=== PATIENT | male | born 1960 | race African-American/Black ===

== ENCOUNTER 2018-12-16 04:22 | Inpatient (IN) | payer MEDICARE, MEDICAID ==
[~2018-12-16] VITALS: Ht 185.4 cm; Wt 82.0 kg
[2018-12-16] MEDS ORDERED: SODIUM CHLORIDE 0.9% 1,000 ML IV ONE (05:15)
[2018-12-16 05:54] LABS: BASOPHILS % 0.8 % (0.0-2.0); EOSINOPHILS % 1.9 % (0.0-5.0); HEMATOCRIT. 45.1 % (42.0-52.0); HEMOGLOBIN. 15.7 g/dL (14.0-18.0); LYMPHOCYTES % 16.7 % (20.0-50.0); MEAN CORPUSCULAR HEMOGLOBIN 33.4 pg (28.0-32.0); MEAN CORPUSCULAR VOLUME 96.1 fL (80.0-94.0); MONOCYTES % 8.9 % (2.0-8.0); NEUTROPHILS % 71.7 % (40.0-76.0); PLATELET 170 x1000/uL (130-400); RED CELL DISTRIBUTION WIDTH 12.9 % (11.6-14.6)
[2018-12-16 05:57] LABS: CHLORIDE 105 mEq/L (98-107)
[2018-12-16 07:12] LABS: *AMPHETAMINES SCREEN URINE NEGATIVE (NEGATIVE)
[2018-12-16 07:13] LABS: *BARBITURATES SCREEN URINE NEGATIVE (NEGATIVE); *BENZODIAZEPINES SCREEN URINE NEGATIVE (NEGATIVE); *COCAINE SCREEN URINE PRESUMTIVE POSITIVE (NEGATIVE); METHADONE URINE SCREEN NEGATIVE (NEGATIVE); OPIATES URINE SCREEN NEGATIVE (NEGATIVE); PHENCYCLIDINE URINE SCREEN NEGATIVE (NEGATIVE)
[2018-12-16 07:14] LABS: CANNABINOID URINE SCREEN NEGATIVE (NEGATIVE)
[2018-12-16] MEDS ORDERED: CLONIDINE 0.1MG TABLET PO PRN (11:00)
[2018-12-16] MEDS ORDERED: LORAZEPAM 0.5MG TABLET PO PRN (20:30)
[2018-12-16] MEDS ORDERED: DOCUSATE SODIUM 100MG CAPSULE PO PRN (20:30)
[2018-12-16] MEDS ORDERED: IPRATROPIUM/ALBUTEROL 0.5-3(2.5)MG/3ML NEB INH PRN (20:30)
[2018-12-16] MEDS ORDERED: HYDROCODONE/ACETAMINOPHEN 5/325MG TABLET PO PRN (20:30)
[2018-12-16] MEDS ORDERED: ACETAMINOPHEN 325MG TABLET PO PRN (20:30)
[2018-12-16] MEDS ORDERED: ONDANSETRON HCL 4MG/2ML INJ IV PRN (20:30)
[2018-12-16 21:30] VITALS: BP 119/67
[2018-12-17] VITALS: BP 107/61
[2018-12-17 04:00] VITALS: BP 113/70
[2018-12-17 06:56] LABS: CHLORIDE 107 mEq/L (98-107)
[2018-12-17 07:01] LABS: BASOPHILS % 0.5 % (0.0-2.0); HEMOGLOBIN. 15.4 g/dL (14.0-18.0); LYMPHOCYTES % 20.5 % (20.0-50.0); MEAN CORPUSCULAR HEMOGLOBIN 32.8 pg (28.0-32.0); MEAN CORPUSCULAR VOLUME 97.6 fL (80.0-94.0); MEAN PLATELET VOLUME 9.1 fl (7.4-10.4); MONOCYTES % 8.1 % (2.0-8.0); NEUTROPHILS % 67.9 % (40.0-76.0); PLATELET 160 x1000/uL (130-400); RED BLOOD CELL COUNT 4.71 mill/uL (4.7-6.1); RED CELL DISTRIBUTION WIDTH 12.9 % (11.6-14.6)
[2018-12-17 07:05] LABS: LDL CHOLESTEROL 128 mg/dL (5-100)
[2018-12-17 07:07] LABS: CREATINE KINASE 124 IU/L (39-308); PHOSPHORUS 3.2 mg/dL (2.5-4.9)
[2018-12-17 07:08] LABS: HDL CHOLESTEROL 48 mg/dL (40-59)
[2018-12-17 07:12] LABS: CREATINE KINASE MB FRACTION < 1.0 ng/mL (0.5-3.6)
[2018-12-17] MEDS ORDERED: AMLODIPINE 2.5MG TABLET PO SCH (09:00)
[2018-12-17 20:00] VITALS: BP 119/70
== END 2018-12-17 20:45 | disposition home or self-care (01) | DRG 206 ==
LOC: ER 05:27 → 8WST 06:04 → EDBEDREQ 06:14 → EDBEDREQTM 06:14 → ENRESERV 19:39
PROVIDERS: ADMIT Internal Medicine; ATTEND Internal Medicine
DX: M94.0 Chondrocostal junction syndrome [Tietze] (principal); R00.1 Bradycardia, unspecified; E11.9 Type 2 diabetes mellitus without complications; F14.10 Cocaine abuse, uncomplicated; F17.210 Nicotine dependence, cigarettes, uncomplicated; R94.31 Abnormal electrocardiogram [ECG] [EKG]; Z88.6 Allergy status to analgesic agent
CPT/HCPCS: 36415; 71045; 80048; 80061; 80305; 82550; 82553; 82962; 83036; 83605; 83735; 83880; 84100; 84484; 85379; 93005; 93306; 96360; 96361; 99285; J7030

== ENCOUNTER 2019-01-15 18:15 | Emergency (ER) | payer MEDICARE, MEDICAID ==
[~2019-01-15] VITALS: Ht 177.8 cm; Wt 73.0 kg
[2019-01-15 19:55] LABS: BASOPHILS % 0.6 % (0.0-2.0); EOSINOPHILS % 0.8 % (0.0-5.0); HEMATOCRIT. 44.2 % (42.0-52.0); HEMOGLOBIN. 14.9 g/dL (14.0-18.0); LYMPHOCYTES % 19.8 % (20.0-50.0); MEAN CORPUSCULAR HEMOGLOBIN 32.9 pg (28.0-32.0); MEAN CORPUSCULAR VOLUME 97.6 fL (80.0-94.0); MEAN PLATELET VOLUME 9.3 fl (7.4-10.4); MONOCYTES % 7.7 % (2.0-8.0); NEUTROPHILS % 71.1 % (40.0-76.0); PLATELET 75 x1000/uL (130-400); RED BLOOD CELL COUNT 4.52 mill/uL (4.7-6.1); RED CELL DISTRIBUTION WIDTH 13.3 % (11.6-14.6)
[2019-01-15 20:00] LABS: CHLORIDE 107 mEq/L (98-107)
[2019-01-15 20:04] LABS: ETHANOL BLOOD < 10 mg/dL
[2019-01-16 08:03] LABS: CLARITY URINE CLEAR (CLEAR); COLOR URINE AMBER (YELLOW); KETONES URINE 2+ (NEGATIVE); LEUKOCYTE ESTERASE URINE 1+ (NEGATIVE); NITRITE URINE NEGATIVE (NEGATIVE); OCCULT BLOOD URINE NEGATIVE (NEGATIVE); PH URINE 5.5 (4.5-8.0); PROTEIN URINE NEGATIVE (NEGATIVE); SPECIFIC GRAVITY URINE 1.025 (1.005-1.030); UROBILINOGEN URINE 0.2 E.U./dL (0.2-1.0)
[2019-01-16 08:30] LABS: CANNABINOID URINE SCREEN NEGATIVE (NEGATIVE); METHADONE URINE SCREEN NEGATIVE (NEGATIVE); OPIATES URINE SCREEN NEGATIVE (NEGATIVE); PHENCYCLIDINE URINE SCREEN NEGATIVE (NEGATIVE)
[2019-01-16 08:31] LABS: *AMPHETAMINES SCREEN URINE NEGATIVE (NEGATIVE); *BARBITURATES SCREEN URINE NEGATIVE (NEGATIVE); *BENZODIAZEPINES SCREEN URINE NEGATIVE (NEGATIVE); *COCAINE SCREEN URINE PRESUMTIVE POSITIVE (NEGATIVE)
[2019-01-17 14:16] VITALS: BP 118/76
== END 2019-01-17 14:20 | disposition home or self-care (01) ==
LOC: ER 18:15
DX: T40.5X2A Poisoning by cocaine, intentional self-harm, initial encounter (principal); F14.188 Cocaine abuse with other cocaine-induced disorder; F31.5 Bipolar disorder, current episode depressed, severe, with psychotic features; Y92.89 Other specified places as the place of occurrence of the external cause
CPT/HCPCS: 36415; 80305; 80307; 80320; 80329; 99284; G0480